=== PATIENT | male | born 1950 | race Caucasian/White ===

== ENCOUNTER 2017-10-23 01:43 | Observation (INO) | payer MEDICARE, OTHER ==
[2017-10-23] VITALS (12 sets, daily range): BP systolic 110–130; BP diastolic 62–75
[~2017-10-23] VITALS: Ht 177.8 cm; Wt 112.0 kg
[~2017-10-23 01:43] MED LIST: AC325T PO; ALBU2.5V52 INH; ASP325T PO; ASPI-906 PO; BUDE0.5A2 IH; CETI10TA17 PO; CLIN-62 PO; CLOP75TA PO; DOCU100T7 PO; DOXA1TAB2 PO; DOXA2TAB2 PO; DULO30CA PO; DXZS2T PO; FURO40TA4 PO; GABA-488 PO; GABA600T2 PO; HYDR-757 PO; LORA10CA PO; MELO-195 PO; MELO7.5T; METH-336 PO; METO25TA2 PO; MULT-974 PO; NAPR250T34 PO; NF-ESOM40C PO; OMEG-12 PO; OMEP20CA12 PO; OXYC-143 PO; OXYCODONE; POTA2TAB2 PO; PRAV20TA PO; PRV20T PO; QUIN324C PO; TRAM50TA2 PO; TRM50T PO; VIT1TABL82 PO; VIT400TA2 PO; [UNRECOGNIZED DRUG - CODE] PO
[2017-10-23 02:21] LABS: ABG BASE EXCESS 1.8 MMOL/L (-2.5-2.5); ABG HCO3 27 MMOL/L (23-27); ABG OXYGEN SATURATION 96 % (94-100); ABG PCO2 55 MMHG (35-45); ABG PO2 70 MMHG (79-93); ALLENS TEST YES-POS; CARBOXYHEMOGLOBIN 13.1 % (0.5-2.5)
[2017-10-23 02:22] LABS: PATIENT TEMP 98.7
[2017-10-23 02:23] LABS: ABG PH 7.32 (7.37-7.43)
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
[2017-10-23] MEDS ORDERED: methylPREDNISolone 125 MG (Solu-MEDROL) VIAL IV STA (03:16)
[2017-10-23 03:24] LABS: BASOPHILS # (AUTO) 0.1 10^3/uL (0.0-0.1); BASOPHILS % (AUTO) 1 % (0-10); EOSINOPHILS # (AUTO) 0.3 10^3/uL (0.0-0.3); EOSINOPHILS % (AUTO) 3 % (0-10); LYMPHOCYTES # (AUTO) 1.6 X 10^3 (1.0-4.0); LYMPHOCYTES % (AUTO) 15 % (12-44); MEAN CORPUSCULAR HEMOGLOBIN 30 PG (25-34); MEAN CORPUSCULAR HGB CONC 32 G/DL (32-36); MEAN CORPUSCULAR VOLUME 92 FL (80-99); MEAN PLATELET VOLUME 9.4 FL (7.4-10.4); MONOCYTES # (AUTO) 0.8 X 10^3 (0.0-1.0); MONOCYTES % (AUTO) 8 % (0-12); NEUTROPHILS # (AUTO) 8.1 X 10^3 (1.8-7.8); NEUTROPHILS % (AUTO) 74 % (42-75); PLATELET COUNT 223 10^3/uL (130-400); RED BLOOD COUNT 5.66 10^6/uL (4.35-5.85); RED CELL DISTRIBUTION WIDTH 14.8 % (10.0-14.5); WHITE BLOOD COUNT 10.9 10^3/uL (4.3-11.0)
[2017-10-23] MEDS ORDERED: DEXAMETHASONE 4 MG/ML SDV (DECADRON) IH ONE (03:30)
[2017-10-23] MEDS ORDERED: RT-ALBUTEROL/IPRATROPIUM 3 ML (DUONEB) VIAL INH ONE (03:30)
[2017-10-23 03:35] LABS: PROTHROMBIN TIME PATIENT 13.1 SEC (12.2-14.7)
[2017-10-23 03:46] LABS: ALANINE AMINOTRANSFERASE 16 U/L (0-55); ANION GAP 14 MMOL/L (5-14); ASPARTATE AMINO TRANSFERASE 18 U/L (5-34); BILIRUBIN,TOTAL 0.2 MG/DL (0.1-1.0); BLOOD UREA NITROGEN 18 MG/DL (7-18); BUN/CREATININE RATIO 17; CALCIUM 8.9 MG/DL (8.5-10.1); CARBON DIOXIDE 21 MMOL/L (21-32); CHLORIDE 102 MMOL/L (98-107); CREATININE SERUM 1.03 MG/DL (0.60-1.30); GFR ESTIMATED > 60; GLUCOSE 157 MG/DL (70-105); POTASSIUM 4.6 MMOL/L (3.6-5.0); SODIUM 137 MMOL/L (135-145); TOTAL PROTEIN 7.7 GM/DL (6.4-8.2)
[2017-10-23 04:12] LABS: ABG BASE EXCESS 1.1 MMOL/L (-2.5-2.5); ABG HCO3 27 MMOL/L (23-27); ABG OXYGEN SATURATION 95 % (94-100); ABG PCO2 57 MMHG (35-45); ABG PO2 66 MMHG (79-93); ABG TCO2 28.7 MMOL/L (21.0-31.0); CARBOXYHEMOGLOBIN 10.1 % (0.5-2.5)
[2017-10-23 04:13] LABS: ALLENS TEST YES-POS; PATIENT TEMP 98.5
[2017-10-23] MEDS ORDERED: RT-ALBUTEROL/IPRATROPIUM 3 ML (DUONEB) VIAL INH PRN (05:15)
[2017-10-23 06:22] LABS: ABG BASE EXCESS 0.8 MMOL/L (-2.5-2.5); ABG HCO3 26 MMOL/L (23-27); ABG OXYGEN SATURATION 99 % (94-100); ABG PCO2 54 MMHG (35-45); ABG PO2 158 MMHG (79-93)
[2017-10-23 06:23] LABS: ALLENS TEST YES-POS
[2017-10-23 06:24] LABS: PATIENT TEMP 98.6
[2017-10-23 06:25] LABS: ABG PH 7.31 (7.37-7.43)
[2017-10-23] MEDS ORDERED: CATHETER FLUSH 10 ML SYR IV PRN (07:00)
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
[2017-10-23] MEDS ORDERED: INFLUENZA TRIvalent 2017-2018 0.5 ML/45 MCG SYR IM ONE ×2 (07:15→14:49)
[2017-10-23] MEDS: RT-ALBUTEROL/IPRATROPIUM 3 ML (DUONEB) VIAL INH SCH ×2 (07:25→11:10)
[2017-10-23] MEDS ORDERED: RT-BUDESONIDE NEBS 0.5 MG/2ML (PULMICORT) AMP INH SCH (08:00)
[2017-10-23] MEDS ORDERED: methylPREDNISolone 125 MG (Solu-MEDROL) VIAL IV SCH (09:00)
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
[2017-10-23] MEDS ORDERED: FURO40TA4 PO (09:38)
[2017-10-23] MEDS ORDERED: VIT1TABL82 PO (09:38)
[2017-10-23] MEDS ORDERED: ATOR20TA66 PO (09:38)
[2017-10-23] MEDS ORDERED: ALBU2.5V4 NEB (09:38)
[2017-10-23] MEDS ORDERED: ASPI-983 PO (09:38)
[2017-10-23] MEDS ORDERED: CLOP75TA69 PO (09:38)
[2017-10-23] MEDS ORDERED: BUDE0.256 NEB (09:38)
[2017-10-23] MEDS ORDERED: CITA40TA19 PO (09:38)
[2017-10-23] MEDS ORDERED: CHOL20002 PO (09:38)
[2017-10-23] MEDS ORDERED: METO-333 PO (09:38)
[2017-10-23] MEDS ORDERED: GABA-488 PO (09:38)
[2017-10-23] MEDS ORDERED: FLUT16SP22 NS (09:38)
[2017-10-23] MEDS ORDERED: CETI10TA17 PO (09:38)
[2017-10-23] MEDS ORDERED: ACET1TAB37 PO (09:38)
[2017-10-23] MEDS ORDERED: ACET325T38 PO (09:38)
[2017-10-23] MEDS ORDERED: DOXA2TAB PO (09:38)
[2017-10-23] MEDS ORDERED: FLAX1000 PO (09:38)
[2017-10-23] MEDS ORDERED: UBID1CAP53 PO (09:38)
[2017-10-23] MEDS ORDERED: TRAM50TA2 PO (09:38)
[2017-10-23] MEDS ORDERED: ASCO-262 PO (09:38)
[2017-10-23] MEDS ORDERED: ACETAMINOPHEN 325 MG TABLET/CAPLET (TYLENOL) PO NR (10:15)
[2017-10-23] MEDS ORDERED: ACETAMINOPHEN 325 MG TABLET/CAPLET (TYLENOL) PO PRN (12:00)
[2017-10-23] MEDS ORDERED: FUROSEMIDE 40 MG (LASIX) TAB PO PRN (12:00)
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
--- NOTE | 2017-10-23 12:13 | Discharge Instructions ---
Discharge Instructions Patient Instructions Patient Instructions: Resume medications and activities as on the discharge list Return to The Hospital For: Declining condition Activity & Diet Discharge Diet: No Restrictions ANKUR MEYER MD Oct 23, 2017 12:13
[2017-10-23] MEDS ORDERED: RT-ALBUTEROL SULF 2.5 MG/3 ML PRE-MIX VIAL IH SCH (13:00)
[2017-10-23] MEDS ORDERED: GABAPENTIN 300 MG (NEURONTIN) CAP PO SCH (13:00)
[2017-10-23] MEDS ORDERED: CATHETER FLUSH 10 ML SYR IV SCH (14:00)
[2017-10-23] MEDS ORDERED: ASPIRIN E.C. 81 MG (ECOTRIN) TAB PO SCH (21:00)
[2017-10-23] MEDS ORDERED: meTOprolol TARTRATE 25 MG (LOPRESSOR) TABLET PO SCH (21:00)
[2017-10-23] MEDS ORDERED: ATORVASTATIN 40 MG (LIPITOR) TABLET PO SCH (21:00)
[2017-10-23] MEDS ORDERED: FLUTICASONE NASAL SPRAY (FLONASE) 16 GM BTL NS SCH (21:00)
[2017-10-24] MEDS ORDERED: CLOPIDOGREL 75 MG (PLAVIX) TABLET PO SCH (09:00)
== END 2017-10-23 12:13 | disposition home or self-care (01) ==
LOC: EDUNIT# 01:43 → ER 01:45 → UNDOADMOB 03:15 → ICU 03:15 → UNDODISOB 14:50
PROVIDERS: ADMIT Internal Medicine; ATTEND Internal Medicine
DX: J70.5 Respiratory conditions due to smoke inhalation (principal); T58.91XA Toxic effect of carbon monoxide from unspecified source, accidental (unintentional), initial encounter; T59.811A Toxic effect of smoke, accidental (unintentional), initial encounter; F17.210 Nicotine dependence, cigarettes, uncomplicated; X02.1XXA Exposure to smoke in controlled fire in building or structure, initial encounter; J44.9 Chronic obstructive pulmonary disease, unspecified; I48.91 Unspecified atrial fibrillation; I25.10 Atherosclerotic heart disease of native coronary artery without angina pectoris; E78.00 Pure hypercholesterolemia, unspecified; I10 Essential (primary) hypertension; I73.9 Peripheral vascular disease, unspecified; K21.9 Gastro-esophageal reflux disease without esophagitis; G25.81 Restless legs syndrome; M19.91 Primary osteoarthritis, unspecified site; I25.2 Old myocardial infarction; E66.9 Obesity, unspecified; Z68.35 Body mass index [BMI] 35.0-35.9, adult; Z79.82 Long term (current) use of aspirin; Z79.899 Other long term (current) drug therapy; Z95.1 Presence of aortocoronary bypass graft; Z95.5 Presence of coronary angioplasty implant and graft; Z23 Encounter for immunization
CPT/HCPCS: 36415; 71010; 71020; 80053; 82375; 82805; 83880; 85025; 85610; 85730; 94640; 94660; 94664; 96374

== ENCOUNTER → 2017-11-21 | Outpatient (CLI) | payer OTHER, MEDICARE ==
[~2017-11-21] MED LIST changes: +ACET1TAB37 PO; +ACET325T38 PO; +ALBU2.5V4 NEB; +ASCO-262 PO; +ASPI-983 PO; +ATOR20TA66 PO; +BUDE0.256 NEB; +CHOL20002 PO; +CITA40TA19 PO; +CLOP75TA69 PO; +DOXA2TAB PO; +FLAX1000 PO; +FLUT16SP22 NS; +METO-333 PO; +UBID1CAP53 PO
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
== END ==
LOC: RAD 17:29
PROVIDERS: ATTEND Registered Nurse
DX: J84.9 Interstitial pulmonary disease, unspecified (principal)
CPT/HCPCS: 71046

== ENCOUNTER 2018-05-09 09:44 | Outpatient (RCR) | payer MEDICARE, OTHER ==
[2018-05-09 11:20] LABS: BASOPHILS # (AUTO) 0.1 10^3/uL (0.0-0.1); BASOPHILS % (AUTO) 1 % (0-10); EOSINOPHILS # (AUTO) 0.2 10^3/uL (0.0-0.3); EOSINOPHILS % (AUTO) 3 % (0-10); HEMATOCRIT 52 % (40-54); HEMOGLOBIN 17.3 G/DL (13.3-17.7); LYMPHOCYTES # (AUTO) 2.4 X 10^3 (1.0-4.0); LYMPHOCYTES % (AUTO) 31 % (12-44); MEAN CORPUSCULAR HEMOGLOBIN 32 PG (25-34); MEAN CORPUSCULAR HGB CONC 33 G/DL (32-36); MEAN CORPUSCULAR VOLUME 94 FL (80-99); MEAN PLATELET VOLUME 10.1 FL (7.4-10.4); MONOCYTES # (AUTO) 0.8 X 10^3 (0.0-1.0); MONOCYTES % (AUTO) 10 % (0-12); NEUTROPHILS # (AUTO) 4.2 X 10^3 (1.8-7.8); NEUTROPHILS % (AUTO) 55 % (42-75); PLATELET COUNT 207 10^3/uL (130-400); RED CELL DISTRIBUTION WIDTH 13.9 % (10.0-14.5); WHITE BLOOD COUNT 7.7 10^3/uL (4.3-11.0)
== END 2018-05-24 13:49 | disposition home or self-care (01) ==
LOC: ONC 09:44
PROVIDERS: ATTEND Internal Medicine Hematology & Oncology
DX: D75.1 Secondary polycythemia (principal); R09.02 Hypoxemia; I25.10 Atherosclerotic heart disease of native coronary artery without angina pectoris; I10 Essential (primary) hypertension; E78.5 Hyperlipidemia, unspecified; J44.9 Chronic obstructive pulmonary disease, unspecified; I73.9 Peripheral vascular disease, unspecified; N40.0 Benign prostatic hyperplasia without lower urinary tract symptoms; F17.210 Nicotine dependence, cigarettes, uncomplicated; E66.9 Obesity, unspecified; Z68.35 Body mass index [BMI] 35.0-35.9, adult; Z79.82 Long term (current) use of aspirin; Z79.899 Other long term (current) drug therapy; Z95.1 Presence of aortocoronary bypass graft
CPT/HCPCS: 36415; 81270; 82668; 82728; 83540; 83615; 85025; 99214

== ENCOUNTER 2018-05-24 13:51 | Outpatient (RCR) | payer MEDICARE, OTHER ==
[~2018-05-24 13:51] MED LIST changes: -FLAX1000 PO; +FLAX10004 PO
== END 2018-06-11 | disposition home or self-care (01) ==
LOC: ONC 13:51
PROVIDERS: ATTEND Internal Medicine Hematology & Oncology
DX: D75.1 Secondary polycythemia (principal); R09.02 Hypoxemia; I25.10 Atherosclerotic heart disease of native coronary artery without angina pectoris; I10 Essential (primary) hypertension; E78.5 Hyperlipidemia, unspecified; J44.9 Chronic obstructive pulmonary disease, unspecified; I73.9 Peripheral vascular disease, unspecified; N40.0 Benign prostatic hyperplasia without lower urinary tract symptoms; F17.210 Nicotine dependence, cigarettes, uncomplicated; E66.9 Obesity, unspecified; Z68.35 Body mass index [BMI] 35.0-35.9, adult; Z79.82 Long term (current) use of aspirin; Z79.899 Other long term (current) drug therapy; Z95.1 Presence of aortocoronary bypass graft
CPT/HCPCS: 99213

== ENCOUNTER → 2018-07-12 | Outpatient (CLI) | payer MEDICARE, OTHER | LOC: CARD 07:58 | PROVIDERS: ATTEND Physician Assistant | DX: I25.10 Atherosclerotic heart disease of native coronary artery without angina pectoris (principal); I65.29 Occlusion and stenosis of unspecified carotid artery; K21.9 Gastro-esophageal reflux disease without esophagitis; E78.5 Hyperlipidemia, unspecified; I10 Essential (primary) hypertension | CPT/HCPCS: 93306 ==

== ENCOUNTER → 2018-07-24 | Outpatient (CLI) | payer MEDICARE, OTHER ==
[~2018-07-24] VITALS: Ht 175.3 cm; Wt 114.3 kg
[~2018-07-24] MED LIST changes: +CATHETER FLUSH 10 ML SYR IV PRN; +REGADENOSON 0.4 MG/5 ML SYR (LEXISCAN) IV ONE
[2018-07-24 09:54] VITALS: BP 123/71
--- NOTE | 2018-07-24 20:58 | STRESS TEST ---
DATE OF SERVICE: 07/24/2018 LEXISCAN MYOVIEW STRESS TEST REPORT REFERRING PHYSICIAN: ELVI Graham. Baseline heart rate is 82. Baseline blood pressure is 136/81. Baseline EKG is sinus rhythm with no ischemic changes. In summary, the patient was injected with 10.71 mCi of technetium-99 Myoview and the resting images were obtained. Then, the patient received 0.4 mg of Lexiscan followed by 29.8 mCi of technetium-99 Myoview. Throughout the test, there were no EKG changes. The resting and stress images were reviewed and compared in the short axis, horizontal long axis, and vertical long axis views. Review of the images showed diaphragmatic attenuation with mild decreased uptake at the inferior wall and inferolateral wall with no significant reversibility. SSS is 0. TID value 1.11. On the gated images, the left ventricle appeared to be in normal size with normal contractility. Calculated ejection fraction 67%. CONCLUSION: 1. The patient tolerated Lexiscan well. 2. Diaphragmatic attenuation affecting the quality of the images with no significant ischemia or infarction noted on SPECT images. 3. Normal left ventricular size with normal contractility. Calculated ejection fraction 67%. Job ID: [id number] DocumentID: [id number] Dictated Date: 07/24/2018 16:45:13 Neuroscience Specialist Date: 07/24/2018 20:58:09 Dictated By: KENDRICK ROCK MD
== END ==
LOC: CARD 08:11
PROVIDERS: ATTEND Physician Assistant
DX: I25.10 Atherosclerotic heart disease of native coronary artery without angina pectoris (principal); I10 Essential (primary) hypertension; E78.5 Hyperlipidemia, unspecified; K21.9 Gastro-esophageal reflux disease without esophagitis
CPT/HCPCS: 78452; 93017

== ENCOUNTER 2018-08-21 15:12 | Outpatient (RCR) | payer MEDICARE, OTHER ==
[~2018-08-21 15:12] MED LIST changes: -CATHETER FLUSH 10 ML SYR IV PRN; -REGADENOSON 0.4 MG/5 ML SYR (LEXISCAN) IV ONE
[2018-08-21 15:54] LABS: BASOPHILS # (AUTO) 0.1 10^3/uL (0.0-0.1); BASOPHILS % (AUTO) 1 % (0-10); EOSINOPHILS # (AUTO) 0.3 10^3/uL (0.0-0.3); EOSINOPHILS % (AUTO) 4 % (0-10); HEMATOCRIT 51 % (40-54); HEMOGLOBIN 17.6 G/DL (13.3-17.7); LYMPHOCYTES % (AUTO) 26 % (12-44); MEAN CORPUSCULAR HEMOGLOBIN 33 PG (25-34); MEAN CORPUSCULAR HGB CONC 35 G/DL (32-36); MEAN CORPUSCULAR VOLUME 94 FL (80-99); MEAN PLATELET VOLUME 9.8 FL (7.4-10.4); MONOCYTES # (AUTO) 0.9 X 10^3 (0.0-1.0); MONOCYTES % (AUTO) 11 % (0-12); NEUTROPHILS # (AUTO) 4.5 X 10^3 (1.8-7.8); NEUTROPHILS % (AUTO) 58 % (42-75); PLATELET COUNT 214 10^3/uL (130-400); RED BLOOD COUNT 5.37 10^6/uL (4.35-5.85); RED CELL DISTRIBUTION WIDTH 13.9 % (10.0-14.5); WHITE BLOOD COUNT 7.8 10^3/uL (4.3-11.0)
== END 2018-11-19 | disposition home or self-care (01) ==
LOC: ONC 15:12
PROVIDERS: ATTEND Internal Medicine Hematology & Oncology
DX: D75.1 Secondary polycythemia (principal); R09.02 Hypoxemia; I25.10 Atherosclerotic heart disease of native coronary artery without angina pectoris; I10 Essential (primary) hypertension; E78.5 Hyperlipidemia, unspecified; J44.9 Chronic obstructive pulmonary disease, unspecified; I73.9 Peripheral vascular disease, unspecified; N40.0 Benign prostatic hyperplasia without lower urinary tract symptoms; F17.210 Nicotine dependence, cigarettes, uncomplicated; E66.9 Obesity, unspecified; Z68.35 Body mass index [BMI] 35.0-35.9, adult; Z79.82 Long term (current) use of aspirin; Z79.899 Other long term (current) drug therapy; Z95.1 Presence of aortocoronary bypass graft
CPT/HCPCS: 81270; 82668; 83540; 83550; 83615; 85025; 99213

== ENCOUNTER 2019-01-15 11:18 | Day surgery (SDC) | payer MEDICARE, OTHER ==
[~2019-01-15] VITALS: Ht 180.3 cm; Wt 115.7 kg
[2019-01-15] VITALS (7 sets, daily range): BP systolic 114–137; BP diastolic 71–87
[2019-01-15] MEDS ORDERED: LIDOCAINE 1% INJ 20 ML 20 ML VIAL ONE ×2 (11:21→14:12)
[2019-01-15] MEDS ORDERED: HEParin 1000 UNIT/ML (10ML VIAL) FOR BOLUS ONE (11:21)
[2019-01-15] MEDS ORDERED: NS IV 1000 ML 3,000 ML ONE (11:22)
[2019-01-15] MEDS ORDERED: NS IV 1000 ML 1,000 ML IV SCH ×2 (11:30→14:41)
[2019-01-15 11:54] LABS: HEMOGLOBIN 16.7 G/DL (13.3-17.7); MEAN PLATELET VOLUME 9.6 FL (7.4-10.4); RED CELL DISTRIBUTION WIDTH 13.8 % (10.0-14.5); WHITE BLOOD COUNT 7.5 10^3/uL (4.3-11.0)
[2019-01-15 11:55] LABS: BILIRUBIN,URINE NEGATIVE (NEGATIVE); CLARITY,URINE CLEAR; COLOR,URINE AMBER; GLUCOSE, URINE (UA) NEGATIVE (NEGATIVE); KETONES,URINE NEGATIVE (NEGATIVE); LEUKOCYTE ESTERASE ,URINE NEGATIVE (NEGATIVE); NITRITE,URINE NEGATIVE (NEGATIVE); PH,URINE 6 (5-9); PROTEIN,URINE 1+ (NEGATIVE); UROBILINOGEN,URINE NORMAL (NORMAL)
[2019-01-15] MEDS ORDERED: EZET10TA27 PO (11:58)
[2019-01-15] MEDS ORDERED: METF-397 PO (11:58)
--- NOTE | 2019-01-15 12:04 | Diagnostic Imaging Report ---
INDICATION: Preoperative evaluation prior to peripheral angiography. COMPARISON: 11/21/2017. FINDINGS: There is mild cardiomegaly. Surgical changes are noted in the mediastinum. There is no evidence of pneumothorax or consolidation. No pleural fluid is seen. IMPRESSION: Cardiomegaly without acute abnormality detected. Dictated by: Dictated on workstation # [id number]
[2019-01-15 12:07] LABS: PROTHROMBIN TIME PATIENT 13.1 SEC (12.2-14.7)
[2019-01-15 12:08] LABS: BACTERIA,URINE NEGATIVE /HPF; SQUAMOUS EPITHELIAL CELL,UR RARE /HPF; WBC,URINE RARE /HPF
[2019-01-15 12:16] LABS: ALANINE AMINOTRANSFERASE 13 U/L (0-55); ALBUMIN 4.2 GM/DL (3.2-4.5); ALKALINE PHOSPHATASE 79 U/L (40-136); BILIRUBIN,TOTAL 0.4 MG/DL (0.1-1.0); BUN/CREATININE RATIO 19; CALCIUM 9.7 MG/DL (8.5-10.1); CARBON DIOXIDE 28 MMOL/L (21-32); CHLORIDE 103 MMOL/L (98-107); CHOLESTEROL 186 MG/DL (< 200); CREATININE SERUM 0.86 MG/DL (0.60-1.30); GFR ESTIMATED > 60; GLUCOSE 69 MG/DL (70-105); HDL CHOLESTEROL 36 MG/DL (40-60); POTASSIUM 4.3 MMOL/L (3.6-5.0); SODIUM 140 MMOL/L (135-145); TRIGLYCERIDES 139 MG/DL (<150); VLDL CHOLESTEROL 28 MG/DL (5-40)
[2019-01-15] MEDS ORDERED: fentaNYL INJECTION 100 MCG/2 ML AMP ONE (13:08)
[2019-01-15] MEDS ORDERED: MIDAZOLAM 5 MG/5 ML (VERSED) VIAL ONE (13:08)
[2019-01-15] MEDS ORDERED: FLU QUADRIvalent (5+ YOA) 2018-2019 (AFLURIA) 0.5 ML IM ONE (13:30)
[2019-01-15] MEDS ORDERED: NITRO DRIP 25000 MCG/D5W 0 ML IV ONE (14:05)
--- NOTE | 2019-01-15 14:37 | Cardiac Procedure Note-CS/ASA ---
Pre-Procedure Note Pre-Op Procedure Note H&P Reviewed The H&P was reviewed, patient examined and no changes noted. Date H&P Reviewed: Jan 15, 2019 Time H&P Reviewed: 13:00 Conscious Sedation Pre-Proced Time 13:00 ASA Score 3 For ASA 3 and 4: Consider anesthesia and medical clearance. Also, for patients with a history of failed moderate sedation consider anesthesia. Airway Lungs Heart ASA score ASA 1: a normal healthy patient ASA 2: a patient with a mild systemic disease (mid diabetes, controlled hypertension, obesity x ASA 3: a patient with a severe systemic disease that limits activity (angina , COPD, prior Myocardial infarction) ASA 4: a patient with an incapacitating disease that is a constant threat to life (CHF, renal failure) ASA 5: a moribund patient not expected to survive 24 hrs. (ruptured aneurysm) ASA 6: a declared brain- patient whose organs are being harvested. For emergent operations, add the letter E after the classification Mallampati Classification Grade 3 Sedation Plan Analgesia, Amnesia, Plan communicated to team members, Discussed options with patient/fam, Discussed risks with patient/fam The patient is an appropriate candidate to undergo the planned procedure, sedation, and anesthesia. The patient immediately re-assessed prior to indication. KENDRICK ROCK MD Jan 15, 2019 14:37
--- NOTE | 2019-01-15 14:41 | Peripheral Report ---
Peripheral Report Physician (s)/Collar Turner (s) Physician KENDRICK ROCK MD Pre-Procedure Diagnosis Pre-Procedure Diagnosis: peripheral arterial disease Post-Procedure Note Procedure Start Date: Jan 15, 2019 Name of Procedure: attempted access to the left femoral artery Findings/Procedure Note 68 years old gentleman with history of peripheral arterial disease, had extensive workup and surgeries in the past. Has been having increasing claudication. Underwent SHERMAN evaluation which was abnormal, he was scheduled for peripheral angiogram possible angioplasty. After explaining the procedure to the patient, all pros and cons were explained , patient signed the consent and then he was placed on the cardiac catheterization laboratory, conscious sedation was achieved, local anesthesia applied to the left groin. Multiple attempts to access the left femoral artery has failed, I was able to access the artery with the needle without the ability to advance a wire, I injected 2 mL of contrast through that artery which showed run through with the bifurcation but no flow from above. I aborted the procedure and tried from the right side without palpable pulse or accessing the right femoral artery Conclusion Extensive peripheral arterial disease, unable to perform the procedure I will arrange for referral to Dr. Magno Pichardo for evaluation Anesthesia Type: Conscious Sedation Estimated blood loss (mL): 5 ml Contrast Amount: 2 ml Total Radiation Dose: 103 mGyh Post-Procedure Diagnosis Post-operative diagnosis: Claudication Peripheral arterial disease Coronary artery disease Hypertension KENDRICK ROCK MD Jan 15, 2019 14:41
[2019-01-15] MEDS ORDERED: PATIENT MAY USE OWN MEDS, ALL PO SCH (14:45)
--- NOTE | 2019-01-15 14:58 | NUR ---
DARSHAND MARK AT DR. ROCK'S OFFICE TO INFORM THAT NEED REFERRAL REQUEST SENT OVER TO [facility] FOR 1-2 WEEKS. Addendum: 01/15/19 at 1459 by RACHAEL SOUTH RN MARK INFORMED WOULD TAKE IT FROM THERE AND WOULD SEND REFERRAL OVER.
== END 2019-01-15 16:15 | disposition home or self-care (01) ==
LOC: CATH 11:18 → SDC 14:37 → CATH 16:15
PROVIDERS: ATTEND Internal Medicine Cardiovascular Disease
DX: I73.9 Peripheral vascular disease, unspecified (principal); I25.10 Atherosclerotic heart disease of native coronary artery without angina pectoris; I10 Essential (primary) hypertension; I65.29 Occlusion and stenosis of unspecified carotid artery; J44.9 Chronic obstructive pulmonary disease, unspecified; F17.210 Nicotine dependence, cigarettes, uncomplicated; I65.23 Occlusion and stenosis of bilateral carotid arteries; E78.5 Hyperlipidemia, unspecified; E66.9 Obesity, unspecified; Z68.37 Body mass index [BMI] 37.0-37.9, adult; Z95.1 Presence of aortocoronary bypass graft; Z88.0 Allergy status to penicillin; Z79.899 Other long term (current) drug therapy
CPT/HCPCS: 36140; 36415; 36430; 71045; 80053; 80061; 81000; 85027; 85610; 85730; 87081; 93005

== ENCOUNTER 2019-01-24 10:59 | Emergency (ER) | payer MEDICARE, OTHER ==
[~2019-01-24] VITALS: Ht 177.8 cm; Wt 115.7 kg
[~2019-01-24 10:59] MED LIST changes: +EZET10TA27 PO; +METF-397 PO
--- NOTE | 2019-01-24 11:16 | ED Lower Extremity ---
General Stated Complaint: PROBLEMS WITH CATHETER Source: patient Exam Limitations: no limitations History of Present Illness Date Seen by Provider: Jan 24, 2019 Time Seen by Provider: 11:13 Initial Comments To ER by private vehicle with reports of bruising to the left lower abdomen and left anterior groin. On 01/15/19 he had attempted peripheral angiogram which was unable to be completed after the left femoral artery was accessed. She reports mild lightheadedness but is mostly just concerned about the appearance of the bruising. Onset: just prior to arrival Severity: moderate Pain/Injury Location: left leg Allergies and Home Medications Allergies Coded Allergies: Penicillins (Unverified Allergy, Unknown, PT CAN TAKE ANCEF, 10/26/06) Home Medications Acetaminophen 325 Mg Tablet, 975 MG PO TID PRN for PAIN-MILD, (Reported) TAKES 3 (325MG) TABLETS Acetaminophen/Chlorpheniramine 1 Each Tablet, 1 TAB PO BID PRN for COLD, ( Reported) Albuterol Sulfate 2.5 Mg/3 Ml Vial.neb, 2.5 MG NEB BID, (Reported) Ascorbate Calcium 500 Mg Tablet, 500 MG PO DAILY, (Reported) Aspirin 81 Mg Tablet.dr, 81 MG PO HS, (Reported) Budesonide 0.25 Mg/2 Ml Ampul.neb, 0.25 MG NEB BID, (Reported) Cetirizine HCl 10 Mg Tablet, 10 MG PO DAILY, (Reported) Citalopram Hydrobromide 40 Mg Tablet, 40 MG PO DAILY, (Reported) Clopidogrel Bisulfate 75 Mg Tablet, 75 MG PO DAILY, (Reported) Doxazosin Mesylate 2 Mg Tablet, 2 MG PO HS, (Reported) Ezetimibe 10 Mg Tablet, 10 MG PO DAILY, (Reported) Flaxseed Oil 1,000 Mg Capsule, 2,000 MG PO BID, (Reported) Fluticasone Propionate 16 Gm [place].susp, 1 SPRAY NS BID, (Reported) Furosemide 40 Mg Tablet, 40 MG PO DAILY PRN for SWELLING, (Reported) Gabapentin 300 Mg Capsule, 300 MG PO TID, (Reported) Metformin HCl 500 Mg Tablet, 500 MG PO BID, (Reported) Metoprolol Tartrate 25 Mg Tablet, 12.5 MG PO BID, (Reported) TAKES 1/2 (25MG) TABLET Tramadol HCl 50 Mg Tablet, 50 MG PO BID PRN for PAIN-MODERATE, (Reported) Ubidecarenone/Vit E Acetate 1 Each Capsule, 100 MG PO DAILY, (Reported) Vit B Comp/C/FA/Iron/Vit E 1 Each Tablet, 1 TAB PO DAILY, (Reported) Patient Home Medication List Home Medication List Reviewed: Yes Review of Systems Constitutional: see HPI EENTM: see HPI Respiratory: no symptoms reported Cardiovascular: no symptoms reported Genitourinary: no symptoms reported Musculoskeletal: no symptoms reported Skin: no symptoms reported Past Knlrbxn-Sogqef-Piwwok Hx Patient Social History Type Used: Cigarettes Recent Foreign Travel: No Contact w/Someone Who Travel: No Recent Hopitalizations: Yes Immunizations Up To Date Date of Pneumonia Vaccine: Oct 23, 2012 Date of Influenza Vaccine: Sep 23, 2014 Past Medical History Surgeries: Yes Cardiac, CABG, Coronary Stent, Tonsillectomy, Vascular Surgery Respiratory: Yes (HOME O2 AT ) COPD Cardiac: Yes Atrial Fibrillation, Coronary Artery Disease, Heart Attack, High Cholesterol, Hypertension, Peripheral Vascular Neurological: Yes Neuropathy, TIA Reproductive Disorders: No Sexually Transmitted Disease: No HIV/AIDS: No Genitourinary: Yes Prostate Problems Gastrointestinal: Yes Gastroesophageal Reflux Musculoskeletal: Yes (RESTLESS LEG SYNDROME) Arthritis, Back Injury, Chronic Back Pain Endocrine: No (OBESITY) HEENT: No Cancer: No Psychosocial: No Integumentary: No Blood Disorders: No Adverse Reaction/Blood Tranf: No Physical Exam Vital Signs Vital Signs - First Documented 01/24/19 11:05 Temp 97.4 Pulse 84 Resp 18 B/P (MAP) 137/74 (95) Pulse Ox 95 O2 Delivery Room Air Capillary Refill : Height, Weight, BMI Height: 5'11.00" Weight: 255lbs. 0.0oz. 115.970291lx; 35.6 BMI Method:Stated General Appearance: WD/WN, no apparent distress HEENT: PERRL/EOMI, normal ENT inspection Respiratory: no respiratory distress, no accessory muscle use Gastrointestinal: non tender, soft, other (ecchymosis to the left lateral lower abdomen) Hips: bilateral hip non-tender, bilateral hip normal inspection, bilateral hip normal range of motion Legs: left leg other (ecchymosis and swelling to the left side of the mons pubis, left anterior proximal thigh. No palpable mass or nodule to suggest pseudoaneurysm) Knees: bilateral knee non-tender, bilateral knee normal inspection Ankles: bilateral ankle non-tender, bilateral ankle normal inspection, bilateral ankle normal range of motion Feet: bilateral foot non-tender, bilateral foot normal inspection Neurologic/Psychiatric: alert, normal mood/affect, oriented x 3 Skin: normal color, warm/dry Progress/Results/Core Measures Results/Orders Lab Results Laboratory Tests Test 01/24/19 11:20 Range/Units White Blood Count 6.5 4.3-11.0 10^3/uL Red Blood Count 5.45 4.35-5.85 10^6/uL Hemoglobin 16.4 13.3-17.7 G/DL Hematocrit 50 40-54 % Mean Corpuscular Volume 92 80-99 FL Mean Corpuscular Hemoglobin 30 25-34 PG Mean Corpuscular Hemoglobin Concent 33 32-36 G/DL Red Cell Distribution Width 13.7 10.0-14.5 % Platelet Count 219 130-400 10^3/uL Mean Platelet Volume 9.8 7.4-10.4 FL Neutrophils (%) (Auto) 64 42-75 % Lymphocytes (%) (Auto) 24 12-44 % Monocytes (%) (Auto) 7 0-12 % Eosinophils (%) (Auto) 4 0-10 % Basophils (%) (Auto) 1 0-10 % Neutrophils # (Auto) 4.2 1.8-7.8 X 10^3 Lymphocytes # (Auto) 1.5 1.0-4.0 X 10^3 Monocytes # (Auto) 0.5 0.0-1.0 X 10^3 Eosinophils # (Auto) 0.3 0.0-0.3 10^3/uL Basophils # (Auto) 0.1 0.0-0.1 10^3/uL Sodium Level 140 135-145 MMOL/L Potassium Level 3.9 3.6-5.0 MMOL/L Chloride Level 102 98-107 MMOL/L Carbon Dioxide Level 28 21-32 MMOL/L Anion Gap 10 5-14 MMOL/L Blood Urea Nitrogen 11 7-18 MG/DL Creatinine 0.95 0.60-1.30 MG/DL Estimat Glomerular Filtration Rate > 60 BUN/Creatinine Ratio 12 Glucose Level 134 H 70-105 MG/DL Calcium Level 9.1 8.5-10.1 MG/DL My Orders Orders - KRISTIN HAUSER PROPOSAL SPECIALIST Cbc With Automated Diff (01/24/19 11:10) Basic Metabolic Panel (3/15/19 11:10) Ct Abdomen/Pelvis W (01/24/19 11:10) Us Left Low Ext Arterial 37320 (01/24/19 11:10) Iohexol Injection (Omnipaque 350 Mg/Ml 1 (01/24/19 12:00) Received Contrast (Contrast Received) (01/24/19 12:00) Ns (Ivpb) (Sodium Chloride 0.9% Ivpb Bag (01/24/19 12:00) Sodium Chloride Flush (Catheter Flush Sy (01/24/19 12:00) Medications Given in ED Current Medications Medications Dose Ordered Sig/Amy Route Start Time Stop Time Status Last Admin Dose Admin Iohexol 100 ml ONCE ONCE IV 01/24/19 12:00 01/24/19 12:01 DC 01/24/19 12:18 100 ML Sodium Chloride 10 ml NEEDED PRN IV 01/24/19 12:00 01/24/19 12:18 10 ML Sodium Chloride 100 ml ONCE ONCE IV 01/24/19 12:00 01/24/19 12:01 DC 01/24/19 12:18 80 ML Vital Signs/I&O 01/24/19 11:05 Temp 97.4 Pulse 84 Resp 18 B/P (MAP) 137/74 (95) Pulse Ox 95 O2 Delivery Room Air Departure Impression Primary Impression: Left groin hematoma Disposition: HOME, SELF-CARE Condition: Stable Departure-Patient Inst. Decision time for Depature: 12:41 Referrals: FAMILIA TREJO MD (PCP/Family) Primary Care Physician Patient Instructions: HEMATOMA Add. Discharge Instructions: . Return to ER for any concerns 2. Follow-up with Dr. Wright 3. Copy Copies To 1: KENDRICK WRIGHT MD; FAMILIA TREJO MD, PETER J APRN Jan 24, 2019 11:16
[2019-01-24 11:29] LABS: BASOPHILS # (AUTO) 0.1 10^3/uL (0.0-0.1); BASOPHILS % (AUTO) 1 % (0-10); EOSINOPHILS # (AUTO) 0.3 10^3/uL (0.0-0.3); EOSINOPHILS % (AUTO) 4 % (0-10); HEMATOCRIT 50 % (40-54); HEMOGLOBIN 16.4 G/DL (13.3-17.7); LYMPHOCYTES # (AUTO) 1.5 X 10^3 (1.0-4.0); LYMPHOCYTES % (AUTO) 24 % (12-44); MEAN CORPUSCULAR HEMOGLOBIN 30 PG (25-34); MEAN CORPUSCULAR HGB CONC 33 G/DL (32-36); MEAN CORPUSCULAR VOLUME 92 FL (80-99); MEAN PLATELET VOLUME 9.8 FL (7.4-10.4); MONOCYTES # (AUTO) 0.5 X 10^3 (0.0-1.0); MONOCYTES % (AUTO) 7 % (0-12); NEUTROPHILS # (AUTO) 4.2 X 10^3 (1.8-7.8); NEUTROPHILS % (AUTO) 64 % (42-75); PLATELET COUNT 219 10^3/uL (130-400); RED CELL DISTRIBUTION WIDTH 13.7 % (10.0-14.5); WHITE BLOOD COUNT 6.5 10^3/uL (4.3-11.0)
[2019-01-24 11:48] LABS: BUN/CREATININE RATIO 12; CALCIUM 9.1 MG/DL (8.5-10.1); CARBON DIOXIDE 28 MMOL/L (21-32); CHLORIDE 102 MMOL/L (98-107); CREATININE SERUM 0.95 MG/DL (0.60-1.30); GFR ESTIMATED > 60; GLUCOSE 134 MG/DL (70-105); POTASSIUM 3.9 MMOL/L (3.6-5.0); SODIUM 140 MMOL/L (135-145)
[2019-01-24] MEDS ORDERED: HOLD METFORMIN - RECEIVED CONTRAST 20 ML VIAL IV SCH (12:00)
[2019-01-24] MEDS ORDERED: NS 100 ML (IVPB) BAG IV ONE (12:00)
[2019-01-24] MEDS ORDERED: CATHETER FLUSH 10 ML SYR IV PRN (12:00)
[2019-01-24] MEDS ORDERED: IOHEXOL 350 MG/ML 100 ML (OMNIPAQUE 350) VIAL IV ONE (12:00)
--- NOTE | 2019-01-24 12:37 | Diagnostic Imaging Report ---
PROCEDURE: CT abdomen and pelvis with contrast. TECHNIQUE: Multiple contiguous axial images were obtained through the abdomen and pelvis after administration of intravenous contrast. INDICATION: Heart catheterization one week ago. Patient has increasing bruising and swelling at the puncture site in the groin. COMPARISON: No prior studies are available for comparison. FINDINGS: The lung bases are clear. The liver and gallbladder are unremarkable. No biliary ductal dilatation is seen. The pancreas and spleen are unremarkable. No adrenal mass is identified. Cortical low-density masses are noted suggestive of cysts. Aorta is nonaneurysmal. The small and large bowel loops are normal caliber. There is no obstruction. There is no ascites. There does appear to be a small hematoma in the left groin measuring approximately 4.6 x 2.4 cm. Patient does have a fem-fem graft. No retroperitoneal hemorrhage is identified. The bladder is unremarkable. The prostate is enlarged. Bony structures appear nonacute. IMPRESSION: 1. Left groin hematoma. No retroperitoneal hemorrhage is seen. 2. Prostatomegaly. Dictated by: Dictated on workstation # [id number]
--- NOTE | 2019-01-24 13:05 | Diagnostic Imaging Report ---
INDICATION: Recent heart catheterization in the left groin, complaining of left groin pain. TECHNIQUE: Grayscale, color flow, and duplex Doppler evaluation of the left groin was performed. FINDINGS: There appears to be a hematoma in the left groin measuring approximately 2.6 x 2.2 cm. No internal blood flow is present to suggest pseudoaneurysm. Left common femoral artery is patent. IMPRESSION: Left groin hematoma. No pseudoaneurysm is detected. Dictated by: Dictated on workstation # [id number]
[2019-01-24 13:08] VITALS: BP 137/74
== END 2019-01-24 13:08 | disposition home or self-care (01) ==
LOC: EDUNIT# 10:59 → ER 11:01
DX: M79.81 Nontraumatic hematoma of soft tissue (principal); J44.9 Chronic obstructive pulmonary disease, unspecified; I48.91 Unspecified atrial fibrillation; I25.10 Atherosclerotic heart disease of native coronary artery without angina pectoris; I25.2 Old myocardial infarction; E78.00 Pure hypercholesterolemia, unspecified; I10 Essential (primary) hypertension; I73.9 Peripheral vascular disease, unspecified; E11.40 Type 2 diabetes mellitus with diabetic neuropathy, unspecified; K21.9 Gastro-esophageal reflux disease without esophagitis; G25.81 Restless legs syndrome; E66.9 Obesity, unspecified; Z86.73 Personal history of transient ischemic attack (TIA), and cerebral infarction without residual deficits; Z88.0 Allergy status to penicillin; Z68.35 Body mass index [BMI] 35.0-35.9, adult; Z79.51 Long term (current) use of inhaled steroids; Z79.82 Long term (current) use of aspirin; Z79.02 Long term (current) use of antithrombotics/antiplatelets; Z79.84 Long term (current) use of oral hypoglycemic drugs; Z90.89 Acquired absence of other organs; Z95.1 Presence of aortocoronary bypass graft; Z95.5 Presence of coronary angioplasty implant and graft; Z98.890 Other specified postprocedural states
CPT/HCPCS: 36415; 74177; 80048; 85025; 93926

== ENCOUNTER 2019-02-19 13:53 | Outpatient (RCR) | payer MEDICARE, OTHER ==
[~2019-02-19 13:53] MED LIST changes: -EZET10TA27 PO; +EZET10TA49 PO
[2019-02-19 14:19] LABS: BASOPHILS # (AUTO) 0.1 10^3/uL (0.0-0.1); BASOPHILS % (AUTO) 1 % (0-10); EOSINOPHILS # (AUTO) 0.4 10^3/uL (0.0-0.3); EOSINOPHILS % (AUTO) 7 % (0-10); HEMATOCRIT 47 % (40-54); HEMOGLOBIN 15.1 G/DL (13.3-17.7); LYMPHOCYTES # (AUTO) 1.7 X 10^3 (1.0-4.0); LYMPHOCYTES % (AUTO) 27 % (12-44); MEAN CORPUSCULAR HEMOGLOBIN 30 PG (25-34); MEAN CORPUSCULAR HGB CONC 32 G/DL (32-36); MEAN CORPUSCULAR VOLUME 93 FL (80-99); MEAN PLATELET VOLUME 10.2 FL (7.4-10.4); MONOCYTES # (AUTO) 0.9 X 10^3 (0.0-1.0); MONOCYTES % (AUTO) 13 % (0-12); NEUTROPHILS # (AUTO) 3.3 X 10^3 (1.8-7.8); NEUTROPHILS % (AUTO) 52 % (42-75); PLATELET COUNT 182 10^3/uL (130-400); RED CELL DISTRIBUTION WIDTH 13.8 % (10.0-14.5); WHITE BLOOD COUNT 6.4 10^3/uL (4.3-11.0)
[2019-02-19 14:55] LABS: ALANINE AMINOTRANSFERASE 20 U/L (0-55); ALKALINE PHOSPHATASE 83 U/L (40-136); BILIRUBIN,TOTAL 0.2 MG/DL (0.1-1.0); BUN/CREATININE RATIO 16; CALCIUM 9.4 MG/DL (8.5-10.1); CARBON DIOXIDE 30 MMOL/L (21-32); CHLORIDE 104 MMOL/L (98-107); CREATININE SERUM 0.87 MG/DL (0.60-1.30); GFR ESTIMATED > 60; GLUCOSE 96 MG/DL (70-105); POTASSIUM 4.1 MMOL/L (3.6-5.0); SODIUM 138 MMOL/L (135-145); TOTAL PROTEIN 6.7 GM/DL (6.4-8.2)
== END 2019-05-20 | disposition home or self-care (01) ==
LOC: ONC 13:53
PROVIDERS: ATTEND Internal Medicine Hematology & Oncology
DX: D75.1 Secondary polycythemia (principal); R09.02 Hypoxemia; I25.10 Atherosclerotic heart disease of native coronary artery without angina pectoris; I10 Essential (primary) hypertension; E78.5 Hyperlipidemia, unspecified; J44.9 Chronic obstructive pulmonary disease, unspecified; I73.9 Peripheral vascular disease, unspecified; N40.0 Benign prostatic hyperplasia without lower urinary tract symptoms; F17.210 Nicotine dependence, cigarettes, uncomplicated; E66.9 Obesity, unspecified; Z68.35 Body mass index [BMI] 35.0-35.9, adult; Z79.82 Long term (current) use of aspirin; Z79.899 Other long term (current) drug therapy; Z95.1 Presence of aortocoronary bypass graft
CPT/HCPCS: 36415; 80053; 85025; 99213

== ENCOUNTER → 2019-03-13 | Outpatient (CLI) | payer MEDICARE, OTHER ==
[~2019-03-13] MED LIST changes: +EZET10TA27 PO; -EZET10TA49 PO
[2019-03-13 15:42] LABS: BUN/CREATININE RATIO 19; CALCIUM 9.7 MG/DL (8.5-10.1); CARBON DIOXIDE 27 MMOL/L (21-32); CHLORIDE 100 MMOL/L (98-107); CREATININE SERUM 0.95 MG/DL (0.60-1.30); GFR ESTIMATED > 60; GLUCOSE 130 MG/DL (70-105); POTASSIUM 4.3 MMOL/L (3.6-5.0); SODIUM 140 MMOL/L (135-145)
== END ==
LOC: LAB 15:04
PROVIDERS: ATTEND Thoracic Surgery (Cardiothoracic Vascular Surgery)
DX: I70.211 Atherosclerosis of native arteries of extremities with intermittent claudication, right leg (principal)
CPT/HCPCS: 36415; 80048

== ENCOUNTER → 2019-08-27 | Outpatient (CLI) | payer MEDICARE, OTHER ==
[~2019-08-27] MED LIST changes: -EZET10TA27 PO; +EZET10TA49 PO
[2019-08-27 13:46] LABS: BASOPHILS # (AUTO) 0.1 10^3/uL (0.0-0.1); BASOPHILS % (AUTO) 1 % (0-10); EOSINOPHILS # (AUTO) 0.4 10^3/uL (0.0-0.3); EOSINOPHILS % (AUTO) 6 % (0-10); HEMATOCRIT 48 % (40-54); HEMOGLOBIN 15.4 G/DL (13.3-17.7); LYMPHOCYTES # (AUTO) 2.1 X 10^3 (1.0-4.0); LYMPHOCYTES % (AUTO) 29 % (12-44); MEAN CORPUSCULAR HEMOGLOBIN 30 PG (25-34); MEAN CORPUSCULAR HGB CONC 32 G/DL (32-36); MEAN CORPUSCULAR VOLUME 92 FL (80-99); MEAN PLATELET VOLUME 9.8 FL (7.4-10.4); MONOCYTES # (AUTO) 0.8 X 10^3 (0.0-1.0); MONOCYTES % (AUTO) 12 % (0-12); NEUTROPHILS # (AUTO) 3.8 X 10^3 (1.8-7.8); NEUTROPHILS % (AUTO) 53 % (42-75); PLATELET COUNT 220 10^3/uL (130-400); RED CELL DISTRIBUTION WIDTH 13.4 % (10.0-14.5); WHITE BLOOD COUNT 7.1 10^3/uL (4.3-11.0)
[2019-08-27 14:13] LABS: ALANINE AMINOTRANSFERASE 20 U/L (0-55); ALBUMIN 3.9 GM/DL (3.2-4.5); ALKALINE PHOSPHATASE 80 U/L (40-136); BILIRUBIN,TOTAL 0.3 MG/DL (0.1-1.0); BUN/CREATININE RATIO 15; CALCIUM 8.9 MG/DL (8.5-10.1); CARBON DIOXIDE 28 MMOL/L (21-32); CHLORIDE 104 MMOL/L (98-107); CREATININE SERUM 0.98 MG/DL (0.60-1.30); GFR ESTIMATED > 60; GLUCOSE 105 MG/DL (70-105); POTASSIUM 4.6 MMOL/L (3.6-5.0); SODIUM 140 MMOL/L (135-145); TOTAL PROTEIN 7.1 GM/DL (6.4-8.2)
== END ==
LOC: EDSTATUS 05-21 13:33 → ONC 13:35
PROVIDERS: ATTEND Internal Medicine Hematology & Oncology
DX: D75.1 Secondary polycythemia (principal); R09.02 Hypoxemia; I25.10 Atherosclerotic heart disease of native coronary artery without angina pectoris; I10 Essential (primary) hypertension; E78.5 Hyperlipidemia, unspecified; J44.9 Chronic obstructive pulmonary disease, unspecified; I73.9 Peripheral vascular disease, unspecified; N40.0 Benign prostatic hyperplasia without lower urinary tract symptoms; F17.210 Nicotine dependence, cigarettes, uncomplicated; E66.9 Obesity, unspecified; Z68.35 Body mass index [BMI] 35.0-35.9, adult; Z79.82 Long term (current) use of aspirin; Z79.899 Other long term (current) drug therapy; Z95.1 Presence of aortocoronary bypass graft
CPT/HCPCS: 36415; 80053; 85025; 99213

== ENCOUNTER → 2020-12-07 | Outpatient (CLI) | payer MEDICARE, OTHER ==
[~2020-12-07] MED LIST changes: +ASPI-1238 PO; -ASPI-983 PO
== END ==
LOC: LABNPT 06:57
PROVIDERS: ATTEND Internal Medicine Critical Care Medicine
DX: Z20.822 Contact with and (suspected) exposure to COVID-19 (principal)
CPT/HCPCS: 87635

== ENCOUNTER → 2020-12-10 | Outpatient (CLI) | payer MEDICARE, OTHER | LOC: SLEEP 20:56 | PROVIDERS: ATTEND Nurse Practitioner Family | DX: Z13.83 Encounter for screening for respiratory disorder NEC (principal); G47.33 Obstructive sleep apnea (adult) (pediatric); G47.36 Sleep related hypoventilation in conditions classified elsewhere; R06.00 Dyspnea, unspecified; F17.200 Nicotine dependence, unspecified, uncomplicated | CPT/HCPCS: 95811 ==

== ENCOUNTER → 2020-12-17 | Outpatient (CLI) | payer MEDICARE, OTHER ==
[~2020-12-17] MED LIST changes: +CATHETER FLUSH 10 ML SYR IV PRN; +HOLD METFORMIN - RECEIVED CONTRAST 20 ML VIAL IV SCH; +IOHEXOL 350 MG/ML 100 ML (OMNIPAQUE 350) VIAL IV ONE; +NS 100 ML (IVPB) BAG IV ONE; +RT-ALBUTEROL SULF 2.5 MG/3 ML PRE-MIX VIAL INH ONE
[2020-12-17 10:23] LABS: BUN/CREATININE RATIO 15; CREATININE SERUM 0.98 MG/DL (0.60-1.30); GFR ESTIMATED > 60
[2020-12-17 10:29] LABS: ABG BASE EXCESS 5.3 MMOL/L (-2.5-2.5); ABG OXYGEN SATURATION 90 % (94-100); ABG PCO2 58 MMHG (35-45); ABG PH 7.35 (7.37-7.43); ABG PO2 67 MMHG (79-93); ABG TCO2 32.3 MMOL/L (21.0-31.0); ALLENS TEST YES-POS
[2020-12-17 10:30] LABS: INSPIRED O2 RA; PATIENT TEMP 37.6; VENTILATOR NO
--- NOTE | 2020-12-17 12:41 | Diagnostic Imaging Report ---
INDICATION: Dysphagia. TECHNIQUE: Procedure was performed in conjunction with speech pathology. Videofluoroscopy was performed during the swallowing of barium at multiple consistencies. Patient ingested thin liquid as well as applesauce, banana, ground meat, and cracker consistency. 48 seconds of fluoroscopic time was utilized. FINDINGS: Mild early spillover is noted with the thin liquid. There is normal epiglottic tilt and laryngeal elevation. No laryngeal penetration or aspiration was observed. IMPRESSION: Essentially unremarkable modified barium swallow. Dictated by: Dictated on workstation # [id number]
--- NOTE | 2020-12-17 12:44 | Diagnostic Imaging Report ---
PROCEDURE: CT chest with contrast only. TECHNIQUE: Multiple contiguous axial images were obtained through the chest after administration of intravenous contrast. Auto Exposure Controls were utilized during the CT exam to meet ALARA standards for radiation dose reduction. INDICATION: Cough, positive for COVID. COMPARISON: There are no prior CT chest examinations available for comparison. FINDINGS: There is mild dependent atelectasis in both lung bases and there is mild thickening of the pleura in the right mid lung and right upper lobe. I suspect this finding is chronic in nature. The lungs are otherwise generally clear. There is no evidence for failure, pneumonia or for a pleural effusion. There is a 5 mm noncalcified nodule in the left lung base (image 86 of 151). In retrospect this was present on the prior CT abdomen/pelvis exam of 01/24/2019 and does not appear to have changed significantly. Consequently I do suspect this is a benign process. Neither the aorta nor the pulmonary arteries were well opacified and consequently difficult to evaluate for an acute abnormality. There is no evidence for an aneurysm of the aorta. There is no obvious defect within the pulmonary arteries to indicate a pulmonary embolus either. There is no mediastinal or hilar adenopathy. There is gas and fluid within the esophagus. This finding is nonspecific. There is no evidence for an esophageal mass but if further study is desired, then either endoscopy or an upper gastrointestinal exam would be recommended. The thyroid gland is generally unremarkable. There is cardiomegaly and extensive coronary artery disease. The bone windows show no sign of a fracture or of a destructive lesion. There are sternotomy wires and surgical clips evident. The sections through the upper abdomen failed to show any sign of an acute abnormality. The appearance of the liver does suggest fatty metamorphosis however. IMPRESSION: 1. There is mild dependent atelectasis in both lung bases and there does seem be some thickening of the pleura along the periphery of the right mid lung and right upper lung. There is no acute cardiopulmonary abnormality identified however. 2. This exam is limited in evaluation of the aorta and the pulmonary arteries as those vessels were not well opacified. 3. There is cardiomegaly and coronary artery disease and evidence of prior cardiac surgery. 4. The fluid and gas within the esophagus is nonspecific. Additional considerations as above. Dictated by: Dictated on workstation # [id number]
== END ==
LOC: RAD 09:48
PROVIDERS: ATTEND Nurse Practitioner Family
DX: Z13.83 Encounter for screening for respiratory disorder NEC (principal); U07.1 COVID-19; I25.10 Atherosclerotic heart disease of native coronary artery without angina pectoris; R93.89 Abnormal findings on diagnostic imaging of other specified body structures; I51.7 Cardiomegaly
CPT/HCPCS: 36600; 71260; 74230; 82565; 82805; 84520; 94060; 94726; 94729

== ENCOUNTER → 2021-02-22 | Outpatient (CLI) | payer MEDICARE, OTHER ==
[~2021-02-22] MED LIST changes: -CATHETER FLUSH 10 ML SYR IV PRN; -HOLD METFORMIN - RECEIVED CONTRAST 20 ML VIAL IV SCH; -IOHEXOL 350 MG/ML 100 ML (OMNIPAQUE 350) VIAL IV ONE; -NS 100 ML (IVPB) BAG IV ONE; -RT-ALBUTEROL SULF 2.5 MG/3 ML PRE-MIX VIAL INH ONE
== END ==
LOC: LABNPT 06:55
PROVIDERS: ATTEND Thoracic Surgery (Cardiothoracic Vascular Surgery)
DX: Z01.812 Encounter for preprocedural laboratory examination (principal); Z20.822 Contact with and (suspected) exposure to COVID-19
CPT/HCPCS: 87635

== ENCOUNTER → 2021-03-29 | Outpatient (CLI) | payer MEDICARE, OTHER ==
[2021-03-29 10:39] LABS: BASOPHILS # (AUTO) 0.1 10^3/uL (0.0-0.1); BASOPHILS % (AUTO) 1 % (0-10); EOSINOPHILS # (AUTO) 0.2 10^3/uL (0.0-0.3); EOSINOPHILS % (AUTO) 4 % (0-10); HEMATOCRIT 50 % (40-54); LYMPHOCYTES # (AUTO) 1.1 10^3/uL (1.0-4.0); LYMPHOCYTES % (AUTO) 16 % (12-44); MEAN CORPUSCULAR HEMOGLOBIN 30 pg (25-34); MEAN CORPUSCULAR HGB CONC 32 g/dL (32-36); MEAN CORPUSCULAR VOLUME 93 fL (80-99); MEAN PLATELET VOLUME 10.4 fL (9.0-12.2); MONOCYTES # (AUTO) 0.6 10^3/uL (0.0-1.0); MONOCYTES % (AUTO) 9 % (0-12); NEUTROPHILS # (AUTO) 4.7 10^3/uL (1.8-7.8); NEUTROPHILS % (AUTO) 70 % (42-75); PLATELET COUNT 183 10^3/uL (130-400); WHITE BLOOD COUNT 6.8 10^3/uL (4.3-11.0)
[2021-03-29 10:59] LABS: ALANINE AMINOTRANSFERASE 16 U/L (0-55); ALBUMIN 3.7 GM/DL (3.2-4.5); ALKALINE PHOSPHATASE 86 U/L (40-136); BILIRUBIN,TOTAL 0.7 MG/DL (0.1-1.0); BUN/CREATININE RATIO 12; CALCIUM 8.9 MG/DL (8.5-10.1); CARBON DIOXIDE 26 MMOL/L (21-32); CHLORIDE 103 MMOL/L (98-107); CHOLESTEROL 157 MG/DL (< 200); CREATININE SERUM 0.94 MG/DL (0.60-1.30); GFR ESTIMATED > 60; GLUCOSE 128 MG/DL (70-105); HDL CHOLESTEROL 32 MG/DL (40-60); POTASSIUM 4.1 MMOL/L (3.6-5.0); SODIUM 136 MMOL/L (135-145); TOTAL PROTEIN 6.8 GM/DL (6.4-8.2); TRIGLYCERIDES 143 MG/DL (<150); VLDL CHOLESTEROL 29 MG/DL (5-40)
== END ==
LOC: LAB 10:20
PROVIDERS: ATTEND Registered Nurse
DX: J44.9 Chronic obstructive pulmonary disease, unspecified (principal); E78.5 Hyperlipidemia, unspecified; I25.10 Atherosclerotic heart disease of native coronary artery without angina pectoris; I10 Essential (primary) hypertension; I70.211 Atherosclerosis of native arteries of extremities with intermittent claudication, right leg; F32.9 Major depressive disorder, single episode, unspecified; E66.9 Obesity, unspecified; R41.3 Other amnesia; Z72.0 Tobacco use
CPT/HCPCS: 36415; 80053; 80061; 85025

== ENCOUNTER 2021-05-01 07:58 | Emergency (ER) | payer MEDICARE, OTHER ==
[~2021-05-01] VITALS: Ht 177 cm; Wt 120.0 kg
[2021-05-01 09:02] VITALS: BP 127/74
--- NOTE | 2021-05-01 09:15 | Diagnostic Imaging Report ---
CLINICAL INDICATION: Patient for pain. EXAM: X-ray of the right foot, 3 views. COMPARISON: None. FINDINGS: There is a minimally distracted and angulated fracture of the distal metaphysis of the 5th proximal phalanx. There is no other fracture or dislocation seen. There is hypertrophic calcaneal spurs at the plantar and Achilles attachment. There is mild spurring of the dorsal midfoot. IMPRESSION: 1: There is a minimally distracted and angulated acute fracture of the distal metaphysis of the 5th proximal phalanx. 2: There is no other fracture seen. 3: Degenerative disease of the right foot. Dictated by: Dictated on workstation # [id number]
--- NOTE | 2021-05-01 09:56 | ED Lower Extremity ---
General Chief Complaint: Lower Extremity Stated Complaint: R LITTLE TOE PAIN Nursing Triage Note: PT CO OF R 5TH TOE PAIN PT STATES STUBBED TOE DURING NITE. Nursing Sepsis Screen: No Definite Risk History of Present Illness Date Seen by Provider: May 01, 2021 Time Seen by Provider: 08:05 Initial Comments To ER with right fifth toe pain after he stubbed it during the night. Onset: just prior to arrival Severity: moderate Pain/Injury Location: right 5th toe Method of Injury: direct blow Modifying Factors: Worse With Movement Allergies and Home Medications Allergies Coded Allergies: Penicillins (Unverified Allergy, Unknown, PT CAN TAKE ANCEF, 10/26/06) Home Medications Acetaminophen 325 Mg Tablet, 975 MG PO TID PRN for PAIN-MILD, (Reported) TAKES 3 (325MG) TABLETS Acetaminophen/Chlorpheniramine 1 Each Tablet, 1 TAB PO BID PRN for COLD, (Reported) Albuterol Sulfate 2.5 Mg/3 Ml Vial.neb, 2.5 MG NEB BID, (Reported) Ascorbate Calcium 500 Mg Tablet, 500 MG PO DAILY, (Reported) Aspirin 81 Mg Tablet.dr, 81 MG PO HS, (Reported) Budesonide 0.25 Mg/2 Ml Ampul.neb, 0.25 MG NEB BID, (Reported) Cetirizine HCl 10 Mg Tablet, 10 MG PO DAILY, (Reported) Citalopram Hydrobromide 40 Mg Tablet, 40 MG PO DAILY, (Reported) Clopidogrel Bisulfate 75 Mg Tablet, 75 MG PO DAILY, (Reported) Doxazosin Mesylate 2 Mg Tablet, 2 MG PO HS, (Reported) Ezetimibe 10 Mg Tablet, 10 MG PO DAILY, (Reported) Flaxseed Oil 1,000 Mg Capsule, 2,000 MG PO BID, (Reported) Fluticasone Propionate 16 Gm [place].susp, 1 SPRAY NS BID, (Reported) Furosemide 40 Mg Tablet, 40 MG PO DAILY PRN for SWELLING, (Reported) Gabapentin 300 Mg Capsule, 300 MG PO TID, (Reported) Metformin HCl 500 Mg Tablet, 500 MG PO BID, (Reported) Metoprolol Tartrate 25 Mg Tablet, 12.5 MG PO BID, (Reported) TAKES 1/2 (25MG) TABLET Tramadol HCl 50 Mg Tablet, 50 MG PO BID PRN for PAIN-MODERATE, (Reported) Ubidecarenone/Vit E Acetate 1 Each Capsule, 100 MG PO DAILY, (Reported) Vit B Comp/C/FA/Iron/Vit E 1 Each Tablet, 1 TAB PO DAILY, (Reported) Patient Home Medication List Home Medication List Reviewed: Yes Review of Systems Constitutional: see HPI EENTM: see HPI Respiratory: no symptoms reported Cardiovascular: no symptoms reported Genitourinary: no symptoms reported Musculoskeletal: see HPI Skin: no symptoms reported Psychiatric/Neurological: No Symptoms Reported Past Ryobwnx-Nuzohs-Jhmlvu Hx Patient Social History Type Used: Cigarettes 2nd Hand Smoke Exposure: Yes Recent Infectious Disease Expo: No Recent Hopitalizations: Yes Immunizations Up To Date Date of Pneumonia Vaccine: Oct 23, 2012 Date of Influenza Vaccine: Sep 23, 2014 Past Medical History Surgeries: Yes (TONSILLECTOMY AGE 15) Cardiac, CABG, Coronary Stent, Tonsillectomy, Vascular Surgery Respiratory: Yes (HOME O2 AT ) COPD Cardiac: Yes Atrial Fibrillation, Coronary Artery Disease, Heart Attack, High Cholesterol, Hypertension, Peripheral Vascular Neurological: Yes Neuropathy, TIA Reproductive Disorders: No Sexually Transmitted Disease: No HIV/AIDS: No Genitourinary: Yes Prostate Problems Gastrointestinal: Yes Gastroesophageal Reflux Musculoskeletal: Yes (RESTLESS LEG SYNDROME) Arthritis, Back Injury, Chronic Back Pain Endocrine: No (OBESITY) HEENT: No Cancer: No Psychosocial: No Integumentary: No Blood Disorders: No Adverse Reaction/Blood Tranf: No Physical Exam Vital Signs Vital Signs - First Documented 05/01/21 09:02 Temp 37.0 Pulse 87 Resp 20 B/P (MAP) 127/74 (91) Pulse Ox 93 Capillary Refill : Less Than 3 Seconds Height, Weight, BMI Height: 5'10.00" Weight: 255lbs. 0oz. 115.770113ud; 38.00 BMI Method:Stated General Appearance: WD/WN, no apparent distress HEENT: PERRL/EOMI, normal ENT inspection Respiratory: no respiratory distress, no accessory muscle use Hips: bilateral hip non-tender, bilateral hip normal inspection, bilateral hip normal range of motion Legs: bilateral leg non-tender, bilateral leg normal inspection, bilateral leg normal range of motion Knees: bilateral knee non-tender, bilateral knee normal inspection, bilateral knee normal range of motion Ankles: bilateral ankle non-tender, bilateral ankle normal inspection, bilateral ankle normal range of motion Feet: right foot pain, right foot soft tissue tenderness, right foot other (lateral deviation of the 5th toe) Neurologic/Psychiatric: alert, normal mood/affect, oriented x 3 Skin: normal color, warm/dry Progress/Results/Core Measures Results/Orders Vital Signs/I&O 05/01/21 09:02 Temp 37.0 Pulse 87 Resp 20 B/P (MAP) 127/74 (91) Pulse Ox 93 Blood Pressure Mean: 91 Departure Impression Primary Impression: Toe fracture Disposition: HOME, SELF-CARE Condition: Stable Departure-Patient Inst. Decision time for Depature: 09:56 Referrals: JEFF ANDRADE (PCP/Family) Primary Care Physician Patient Instructions: Toe Fracture ED Add. Discharge Instructions: All discharge instructions reviewed with patient and/or family. Voiced understanding. KRISTIN HAUSER GEOLOGICAL ENGINEER May 01, 2021 09:56
== END 2021-05-01 10:00 | disposition home or self-care (01) ==
LOC: EDUNIT# 07:58 → ER 08:00
DX: S99.291A Other physeal fracture of phalanx of right toe, initial encounter for closed fracture (principal); J44.9 Chronic obstructive pulmonary disease, unspecified; I25.2 Old myocardial infarction; I10 Essential (primary) hypertension; E66.9 Obesity, unspecified; E78.00 Pure hypercholesterolemia, unspecified; Z77.22 Contact with and (suspected) exposure to environmental tobacco smoke (acute) (chronic); Z68.38 Body mass index [BMI] 38.0-38.9, adult; Z86.73 Personal history of transient ischemic attack (TIA), and cerebral infarction without residual deficits; Z79.82 Long term (current) use of aspirin; Z79.899 Other long term (current) drug therapy; W22.8XXA Striking against or struck by other objects, initial encounter
CPT/HCPCS: 73630

== ENCOUNTER → 2021-05-24 | Outpatient (CLI) | payer MEDICARE, OTHER ==
[~2021-05-24] MED LIST changes: +HOLD METFORMIN - RECEIVED CONTRAST 20 ML VIAL IV SCH; +IOHEXOL 350 MG/ML 100 ML (OMNIPAQUE 350) VIAL IV ONE; +NS 100 ML (IVPB) BAG IV ONE
[2021-05-24 11:28] LABS: CREATININE SERUM 0.97 MG/DL (0.60-1.30); GFR ESTIMATED > 60
[2021-05-24 11:29] LABS: BUN/CREATININE RATIO 11
--- NOTE | 2021-05-24 13:28 | Diagnostic Imaging Report ---
PROCEDURE: CT chest with contrast only. TECHNIQUE: Multiple contiguous axial images were obtained through the chest after administration of intravenous contrast. Auto Exposure Controls were utilized during the CT exam to meet ALARA standards for radiation dose reduction. INDICATION: Abnormal findings at previous imaging. COMPARISON: Exam is compared with chest CT 12/17/2020. FINDINGS: The atherosclerotic aorta is patent and nonaneurysmal. There is no pleural or pericardial effusion. Previous zones of basilar atelectasis have resolved. There is some mild fluid distention to the mid to lower third of the thoracic esophagus without discrete transition zone, unchanged from previous; correlate for reflux. This patient has a tiny hiatal hernia. No lymphadenopathy. No lung mass. No acute infiltrate. No findings of edema or pneumonia. The visualized upper abdomen shows partially visualized renal cysts with no acute appearing abnormality. IMPRESSION: No suspicious mass, nodule, or infiltrate. No effusion. No aneurysm. No acute appearing abnormality. Mild fluid within the lumen of the lower thoracic esophagus with small hiatal hernia; correlate for reflux. Dictated by: Dictated on workstation # [id number]
== END ==
PROVIDERS: ATTEND Nurse Practitioner Family
DX: R91.8 Other nonspecific abnormal finding of lung field (principal)
CPT/HCPCS: 36415; 71260; 82565; 84520

== ENCOUNTER → 2021-08-31 | Outpatient (CLI) | payer MEDICARE, OTHER ==
[~2021-08-31] MED LIST changes: -HOLD METFORMIN - RECEIVED CONTRAST 20 ML VIAL IV SCH; -IOHEXOL 350 MG/ML 100 ML (OMNIPAQUE 350) VIAL IV ONE; -NS 100 ML (IVPB) BAG IV ONE
== END ==
LOC: LAB 11:29
PROVIDERS: ATTEND Registered Nurse
DX: R73.01 Impaired fasting glucose (principal)
CPT/HCPCS: 36415; 83036

== ENCOUNTER → 2021-12-14 | Outpatient (CLI) | payer MEDICARE, OTHER ==
[~2021-12-14] VITALS: Ht 177 cm; Wt 122.0 kg
[~2021-12-14] MED LIST changes: +REGADENOSON 0.4 MG/5 ML SYR (LEXISCAN) IV ONE
[2021-12-14] MEDS: CATHETER FLUSH 10 ML SYR IV PRN ×2 (10:53→12:39)
[2021-12-14 12:31] VITALS: BP 137/93
--- NOTE | 2021-12-14 14:07 | Cardiology Stress Test Report ---
Stress Test Report Date of Procedure/Referring: Date of Procedure: Dec 14, 2021 PCP Kendrick Wright MD Admitting Physician Lydia Brennan Indications: HTN Baseline Heart Rate: 101 Baseline Blood Pressure: Blood Pressure Systolic: 137 Blood Pressure Diastolic: 93 Baseline Vitals Vital Signs Date Time Temp Pulse Resp B/P (MAP) Pulse Ox O2 Delivery O2 Flow Rate FiO2 12/14/21 12:31 89 137/93 (108) 97 Room Air Baseline EKG: Baseline EKG: NSR Summary After explaining the procedure to the patient, he signed a consent and then brought to the stress nuclear laboratory. Patient received 0.4 mg Lexiscan for stress test, ECG, heart rate and blood pressure were monitored continuously. Resting and stress dose of radio tracer were injected, imaging was acquired and reviewed in short axis, horizontal long axis and vertical long axis views. TID: 1.12 SSS: 1 SDS: 1 EF: 66 1. Patient tolerated Lexiscan well 2. Diaphragmatic attenuation with typical male pattern with no significant ischemia or infarction on SPECT images 3. Normal left ventricular size, EF 66% KENDRICK WRIGHT MD Dec 14, 2021 14:07
== END ==
LOC: CARD 10:30
PROVIDERS: ATTEND Internal Medicine Cardiovascular Disease
DX: I11.9 Hypertensive heart disease without heart failure (principal); I25.10 Atherosclerotic heart disease of native coronary artery without angina pectoris
CPT/HCPCS: 78452; 93017; 93306; A9502

== ENCOUNTER → 2022-01-19 | Outpatient (CLI) | payer MEDICARE ==
[~2022-01-19] MED LIST changes: -REGADENOSON 0.4 MG/5 ML SYR (LEXISCAN) IV ONE
[2022-01-19 10:00] LABS: BASOPHILS # (AUTO) 0.1 10^3/uL (0.0-0.1); BASOPHILS % (AUTO) 1 % (0-10); EOSINOPHILS # (AUTO) 0.3 10^3/uL (0.0-0.3); EOSINOPHILS % (AUTO) 5 % (0-10); HEMATOCRIT 51 % (40-54); HEMOGLOBIN 16.2 g/dL (13.3-17.7); LYMPHOCYTES # (AUTO) 1.9 10^3/uL (1.0-4.0); LYMPHOCYTES % (AUTO) 30 % (12-44); MEAN CORPUSCULAR HEMOGLOBIN 30 pg (25-34); MEAN CORPUSCULAR HGB CONC 32 g/dL (32-36); MEAN CORPUSCULAR VOLUME 94 fL (80-99); MONOCYTES # (AUTO) 0.5 10^3/uL (0.0-1.0); MONOCYTES % (AUTO) 9 % (0-12); NEUTROPHILS # (AUTO) 3.4 10^3/uL (1.8-7.8); NEUTROPHILS % (AUTO) 55 % (42-75); PLATELET COUNT 216 10^3/uL (130-400); WHITE BLOOD COUNT 6.2 10^3/uL (4.3-11.0)
[2022-01-19 10:24] LABS: BILIRUBIN,TOTAL 0.4 MG/DL (0.1-1.0); CALCIUM 9.2 MG/DL (8.5-10.1); CREATININE SERUM 1.04 MG/DL (0.60-1.30); POTASSIUM 4.3 MMOL/L (3.6-5.0); TOTAL PROTEIN 7.1 GM/DL (6.4-8.2)
== END ==
LOC: LAB 09:34
PROVIDERS: ATTEND Registered Nurse
DX: E11.65 Type 2 diabetes mellitus with hyperglycemia (principal); J44.9 Chronic obstructive pulmonary disease, unspecified; I10 Essential (primary) hypertension; I25.10 Atherosclerotic heart disease of native coronary artery without angina pectoris; E78.5 Hyperlipidemia, unspecified
CPT/HCPCS: 36415; 80053; 80061; 82043; 83036; 85025

== ENCOUNTER → 2022-01-26 | Outpatient (CLI) | payer MEDICARE ==
[~2022-01-26] MED LIST changes: +RT-ALBUTEROL SULF 2.5 MG/3 ML PRE-MIX VIAL INH ONE
== END ==
LOC: RT 13:00
PROVIDERS: ATTEND Internal Medicine Critical Care Medicine
DX: R06.02 Shortness of breath (principal); Z72.0 Tobacco use
CPT/HCPCS: 94060; 94621; 94726; 94729

== ENCOUNTER → 2022-08-10 | Outpatient (CLI) | payer MEDICARE ==
[~2022-08-10] MED LIST changes: -RT-ALBUTEROL SULF 2.5 MG/3 ML PRE-MIX VIAL INH ONE
[2022-08-10 09:09] LABS: ABG BASE EXCESS 0.8 MMOL/L (-2.5-2.5); ABG OXYGEN SATURATION 95 % (94-100); ABG PCO2 50 MMHG (35-45); ABG PO2 68 MMHG (79-93); ABG TCO2 27.6 MMOL/L (21.0-31.0)
[2022-08-10 09:18] LABS: ABG PH 7.33 (7.37-7.43); ALLENS TEST YES-POS; PATIENT TEMP 98.1; VENTILATOR NO
--- NOTE | 2022-08-10 12:06 | Diagnostic Imaging Report ---
CT CHEST SCREENING WO TECHNIQUE: Low-dose unenhanced CT of the chest was performed according to the screening protocol. Coronal MIP and sagittal MPR reformats are created. Automatic exposure controls were utilized to keep dose as low as reasonably achievable. INDICATION: 55 pack year history smoking. Current smoker. COMPARISON: CT chest of 05/24/2021 FINDINGS: Pulmonary findings: Stable 4 mm left lower lobe pulmonary nodule. No new suspicious pulmonary nodules. Peribronchial thickening in the lower lobes is most compatible with chronic bronchitis in this patient with history of smoking. Mild centrilobular emphysema. No pneumonia or edema. Extrapulmonary findings: No axillary or mediastinal lymphadenopathy. No pericardial or pleural effusion. Severe calcification of [place] coronary arteries is unchanged. Status post CABG. Normal caliber thoracic aorta. Limited assessment upper abdomen is unremarkable. No worrisome focal osseous lesions. IMPRESSION: 1. No change indicate clinically active lung cancer. 2. Chronic bronchitis. Lung-RADS category: 2 - Benign appearance or behavior Recommendations: Continued annual screening with low-dose CT in 12 months. Dictated by: Dictated on workstation # [id number]
== END ==
LOC: RAD 08:15
PROVIDERS: ATTEND Internal Medicine Critical Care Medicine
DX: J42 Unspecified chronic bronchitis (principal); Z87.891 Personal history of nicotine dependence
CPT/HCPCS: 36600; 71271; 82805